=== PATIENT | female | born 1995 ===

== ENCOUNTER 2017-05-21 15:28 | Emergency (ER) | payer OTHER ==
[2017-05-21 15:47] VITALS: BP 130/90; PULSE 82; RESP 18; O2SAT 99
--- NOTE | 2017-05-21 16:15 | ED PDOC ---
HPI: General Adult Time Seen by Provider: 05/21/17 15:48 Chief Complaint (Nursing): Female Genitourinary History Per: Patient Additional Complaint(s): Pt. states last week she went to see Dr. Moreland as she had R sided breast pain and was found to be . Pt. states today she received a phone call from his office saying that her "level was low and to return to repeat the test. " This afternoon she developed R sided pelvic cramping prompting ED visit. Denies vaginal bleeding, hx of ectopic , dysuria, hematuria, frequency , urgency, vaginal discharge. Past Medical History Reviewed: Historical Data, Nursing Documentation, Vital Signs Vital Signs: Last Vital Signs Temp Pulse 82 05/21/17 15:43 Resp 18 05/21/17 15:43 BP 130/90 05/21/17 15:43 Pulse Ox 99 05/21/17 17:44 - Medical History PMH: Hypothyroidism - Surgical History Other surgeries: thyroidectomy - Family History Family History: States: No Known Family Hx - Home Medications Home Medications: Ambulatory Orders Medication Instructions Recorded Oseltamivir Phosphate [Tamiflu] 75 mg PO BID #10 capsule 10/03/15 Nitrofurantoin Macrocrystals 100 mg PO BID #14 cap 05/21/17 [Macrobid] - Allergies Allergies/Adverse Reactions: Allergies Allergy/AdvReac Type Severity Reaction Status Date / Time No Known Allergies Allergy Verified 05/21/17 15:43 Review of Systems ROS Statement: Except As Marked, All Systems Reviewed And Found Negative Genitourinary Female: Positive for: Pelvic Pain Physical Exam - Physical Exam Appears: Positive for: Well, Non-toxic, No Acute Distress Skin: Positive for: Normal Color, Warm. Negative for: Rash Eye Exam: Positive for: Normal appearance Gastrointestinal/Abdominal: Positive for: Normal Exam, Bowel Sounds, Soft, Other (minimal suprapubic tenderness). Negative for: Tenderness Back: Positive for: Normal Inspection. Negative for: L CVA Tenderness, R CVA Tenderness Neurologic/Psych: Positive for: Alert, Oriented - Laboratory Results Result Diagrams: 05/21/17 16:23 05/21/17 16:23 Urine POC: Positive Urine dip results: Positive for: Leukocyte Esterase (small). Negative for: Blood, Nitrate, Ketones, Glucose, Bilirubin, Protein - ECG O2 Sat by Pulse Oximetry: 99 - Progress ED Course And Treament: Labs ordered. OB TVUS ordered. 1741 TVUS: Endometrial hypertrophy without focal endometrial abnormality. Otherwise unremarkable study. [facility] 166 Urine culture sent. Call placed to Dr. Moreland 174 Case d/w Dr. Moreland who agrees with care and will f/u with patient. Disposition - Clinical Impression Clinical Impression: Urinary tract infection, - Patient ED Disposition Is Patient to be Admitted: No - Disposition Referrals: Salo Cruz MD [Staff Provider] - Disposition: Routine/Home Disposition Time: 17:43 Condition: STABLE Additional Instructions: Follow up with Dr. Moreland for further evaluation. Prescriptions: Nitrofurantoin Macrocrystals [Macrobid] 100 mg PO BID #14 cap Instructions: Urinary Tract Infection in (ED) Forms: [facility] (Slovenian) Print Language: LATVIAN
[2017-05-21 16:28] LABS: BASO % 0.2 % (0.0-2.0); EOS % 0.1 % (0.0-4.0); HEMATOCRIT 37.2 % (34.0-47.0); LYMPH # 1.9 K/uL (1.0-4.3); LYMPH % 24.4 % (20.0-40.0); MEAN CELL VOLUME 87.1 fl (81.0-99.0); MEAN CORPUSCULAR HEMOGLOBIN 29.5 pg (27.0-31.0); MEAN CORPUSCULAR HGB CONC 33.9 g/dL (33.0-37.0); MEAN PLATELET VOLUME 9.9 fl (7.2-11.7); MONO # 0.6 K/uL (0.0-0.8); NEUT # 5.2 K/uL (1.8-7.0); NEUT % 67.3 % (50.0-75.0); RED CELL DISTRIBUTION WIDTH 13.5 % (11.5-14.5); WHITE BLOOD COUNT 7.7 K/uL (4.8-10.8)
[2017-05-21 16:54] LABS: ALB/GLOB RATIO 1.4 (1.0-2.1); ALKALINE PHOSPHATASE 43 U/L (38-126); ALT/SGPT 23 U/L (9-52); AST/SGOT 22 U/L (14-36); BILIRUBIN,TOTAL 1.7 mg/dl (0.2-1.3); BLOOD UREA NITROGEN 12 mg/dl (7-17); CALCIUM 9.8 mg/dL (8.4-10.2); CARBON DIOXIDE 28 mmol/L (22-30); CHLORIDE 102 mmol/L (98-107); GFR AFRICAN-AMERICAN > 60; GLUCOSE,RANDOM 87 mg/dL (65-105); POTASSIUM 4.1 MMOL/L (3.6-5.0); SODIUM 141 mmol/l (132-148); TOTAL PROTEIN 7.8 G/DL (6.3-8.2)
[2017-05-21 16:58] LABS: RBC URINE 7 /hpf (0-3); URINE BACTERIA OCC (<OCC); URINE BILIRUBIN NEGATIVE (NEGATIVE); URINE BLOOD NEGATIVE (NEGATIVE); URINE COLOR YELLOW (YELLOW); URINE GLUCOSE (UA) NEG (Normal); URINE KETONE NEGATIVE (NEGATIVE); URINE LEUKOCYTE ESTERASE MOD Leu/uL (Negative); URINE PROTEIN NEGATIVE (NEGATIVE); URINE UROBILINOGEN 0.2-1.0 mg/dL (0.2-1.0)
[2017-05-21 16:59] LABS: WBC URINE 24 /hpf (0-5)
--- NOTE | 2017-05-21 17:34 | US ---
HISTORY: Pelvic cramping 4 hours duration. Menstrual status: LMP 04/15/2017 COMPARISON: None available. TECHNIQUE: Transvaginal only. Real -time technique with 2D, duplex and color Doppler FINDINGS: UTERUS: Measures 3.8 x 5.9 x 9 2 cm. Normal in size and appearance. No fibroid or other mass lesion seen. ENDOMETRIUM: Measures 23.9 mm in diameter. Endometrial hypertrophy without focal or diffuse abnormality. CERVIX: No cervical abnormality identified. RIGHT OVARY: Measures 1.9 x 2.1 x 3.3 cm. No solid mass. Normal flow. LEFT OVARY: Measures 2.3 x 2.4 x 3 cm. No solid mass. Normal flow. FREE FLUID: No significant free fluid noted. OTHER FINDINGS: None. IMPRESSION: Endometrial hypertrophy without focal endometrial abnormality. Otherwise unremarkable study.
== END 2017-05-21 18:06 | disposition home or self-care (01) ==
LOC: H.ER 15:28
DX: O23.40 Unspecified infection of urinary tract in pregnancy, unspecified trimester (principal)

== ENCOUNTER 2017-06-12 13:49 | Emergency (ER) | payer OTHER ==
[2017-06-12 14:05] VITALS: BP 113/68; PULSE 105; RESP 16; TEMP 97.2
[2017-06-12 14:09] VITALS: O2SAT 98
--- NOTE | 2017-06-12 15:04 | ED PDOC ---
HPI: Female Pain Time Seen by Provider: 06/12/17 14:11 Chief Complaint (Nursing): Female Genitourinary Chief Complaint (Provider): Vomiting History Per: Patient History/Exam Limitations: no limitations Onset/Duration Of Symptoms: Days (1 day ago) Current Symptoms Are (Timing): Still Present Associated Symptoms: Vomiting. denies: Diarrhea Additional Complaint(s): Di Jiménez is a 22 yo female with a past medical of Hypothyroidism and surgical history of a thyroidectomy. She is currently 8 weeks by ultrasound and presents to the ED with a chief complaint of vomiting multiple times and states that she is having trouble keeping food or liquids down, with an onset of 1 day ago. Of note, she was seen by a physician 4 days ago for the same symptoms and was sent home with a prescription of Reglan. She denies of any hematemesis, abdominal pain, diarrhea, dysuria, and vaginal bleeding. [employer]: Dr. Salo Cruz MD : 2 Para: 1 Past Medical History Reviewed: Historical Data, Nursing Documentation, Vital Signs Vital Signs: Last Vital Signs Temp 97.2 F L 06/12/17 14:05 Pulse 105 H 06/12/17 14:05 Resp 16 06/12/17 14:05 BP 113/68 06/12/17 14:06 Pulse Ox 98 06/12/17 14:06 - Medical History PMH: Hypothyroidism - Surgical History Other surgeries: Thyroidectomy - Family History Family History: States: Unknown Family Hx - Living Arrangements Living Arrangements: With Family - Social History Current smoker - smoking cessation education provided: No Alcohol: None Drugs: Denies - Home Medications Home Medications: Ambulatory Orders Medication Instructions Recorded Oseltamivir Phosphate [Tamiflu] 75 mg PO BID #10 capsule 10/03/15 Nitrofurantoin Macrocrystals 100 mg PO BID #14 cap 05/21/17 [Macrobid] Metoclopramide [Reglan] 10 mg PO Q8 #10 tab 06/08/17 Ondansetron ODT [Zofran ODT] 4 mg PO Q8 PRN #12 odt 06/12/17 - Allergies Allergies/Adverse Reactions: Allergies Allergy/AdvReac Type Severity Reaction Status Date / Time No Known Allergies Allergy Verified 06/12/17 14:05 Review of Systems ROS Statement: Except As Marked, All Systems Reviewed And Found Negative Constitutional: Negative for: Fever Gastrointestinal: Positive for: Vomiting. Negative for: Abdominal Pain, Diarrhea, Hematemesis Genitourinary Female: Negative for: Dysuria Physical Exam - Reviewed Nursing Documentation Reviewed: Yes Vital Signs Reviewed: Yes - Physical Exam Appears: Positive for: Non-toxic, No Acute Distress Head Exam: Positive for: ATRAUMATIC, NORMOCEPHALIC Skin: Positive for: Normal Color, Warm, Dry Eye Exam: Positive for: EOMI, Normal appearance, PERRL Neck: Positive for: Normal, Supple Cardiovascular/Chest: Positive for: Regular Rate, Rhythm Respiratory: Positive for: CNT, Normal Breath Sounds Gastrointestinal/Abdominal: Positive for: Normal Exam, Soft. Negative for: Tenderness Back: Positive for: Normal Inspection Extremity: Positive for: Normal ROM. Negative for: Pedal Edema, Deformity Neurologic/Psych: Positive for: Alert, Oriented. Negative for: Motor/Sensory Deficits - Laboratory Results Result Diagrams: 06/12/17 15:10 06/12/17 15:10 - ECG O2 Sat by Pulse Oximetry: 98 (RA) Pulse Ox Interpretation: Normal Medical Decision Making Medical Decision Making: Time: --14:50 Impression: --vomitting in preg Differentials: --possible dehydraton Plan: --Labs --ED Urine --Odansetron 4mg IV --IV Fluids --Urinaysis -- Reassess: --Time: 16:25 Patient is feeling better and able tolerate PO. Discussed with Anthony who recommends Zofran ODT rx and discharge with follow up. Scribe Attestation: Documented by Hussain Giordano, acting as a scribe for Joe Veras MD. Provider Scribe Attestation: All medical record entries made by the Scribe were at my direction and personally dictated by me. I have reviewed the chart and agree that the record accurately reflects my personal performance of the history, physical exam, medical decision making, and the department course for this patient. I have also personally directed, reviewed, and agree with the discharge instructions and disposition. Disposition - Clinical Impression Clinical Impression: Hyperemesis gravidarum - Patient ED Disposition Is Patient to be Admitted: No Discussed With : Salo Cruz Doctor Will See Patient In The: Office Counseled Patient/Family Regarding: Studies Performed, Diagnosis - Disposition Referrals: Salo Cruz MD [Staff Provider] - Disposition: Routine/Home Disposition Time: 16:35 Condition: GOOD Additional Instructions: Return for worsening. Follow up with your PCP in 2-3 days. Prescriptions: Ondansetron ODT [Zofran ODT] 4 mg PO Q8 PRN #12 odt PRN Reason: Nausea/Vomiting Instructions: Hyperemesis Gravidarum (ED)
[2017-06-12 15:20] LABS: BASO % 0.2 % (0.0-2.0); HEMATOCRIT 35.5 % (34.0-47.0); LYMPH # 1.6 K/uL (1.0-4.3); LYMPH % 18.8 % (20.0-40.0); MEAN CELL VOLUME 85.1 fl (81.0-99.0); MEAN CORPUSCULAR HEMOGLOBIN 30.1 pg (27.0-31.0); MEAN CORPUSCULAR HGB CONC 35.3 g/dL (33.0-37.0); MEAN PLATELET VOLUME 9.5 fl (7.2-11.7); MONO # 0.5 K/uL (0.0-0.8); MONO % 6.2 % (0.0-10.0); NEUT # 6.2 K/uL (1.8-7.0); NEUT % 74.8 % (50.0-75.0); WHITE BLOOD COUNT 8.3 K/uL (4.8-10.8)
[2017-06-12 15:30] LABS: RBC URINE 2 /hpf (0-3); URINE BACTERIA RARE (<OCC); URINE BILIRUBIN NEGATIVE (NEGATIVE); URINE BLOOD NEGATIVE (NEGATIVE); URINE COLOR YELLOW (YELLOW); URINE GLUCOSE (UA) NEG (Normal); URINE KETONE 80 mg/dL (NEGATIVE); URINE LEUKOCYTE ESTERASE NEG Leu/uL (Negative); URINE PROTEIN 100 mg/dL (NEGATIVE); URINE UROBILINOGEN 0.2-1.0 mg/dL (0.2-1.0); WBC URINE 1 /hpf (0-5)
[2017-06-12 15:31] LABS: ALB/GLOB RATIO 1.4 (1.0-2.1); ALKALINE PHOSPHATASE 37 U/L (38-126); ALT/SGPT 28 U/L (9-52); AST/SGOT 22 U/L (14-36); BILIRUBIN,TOTAL 1.9 mg/dl (0.2-1.3); BLOOD UREA NITROGEN 7 mg/dl (7-17); CALCIUM 9.3 mg/dL (8.4-10.2); CARBON DIOXIDE 24 mmol/L (22-30); CHLORIDE 104 mmol/L (98-107); GFR AFRICAN-AMERICAN > 60; GLUCOSE,RANDOM 82 mg/dL (65-105); POTASSIUM 4.2 MMOL/L (3.6-5.0); SODIUM 141 mmol/l (132-148)
[2017-06-12] MEDS ORDERED: Sodium Chloride 0.9% 1,000 ML IV STA (16:32)
== END 2017-06-12 16:50 | disposition home or self-care (01) ==
LOC: H.ER 13:49
DX: O21.0 Mild hyperemesis gravidarum (principal); E03.9 Hypothyroidism, unspecified
CPT/HCPCS: 80053; 81003; 81025; 85025; 96374; 99282; J2405

== ENCOUNTER 2017-06-25 13:03 | Emergency (ER) | payer OTHER ==
[2017-06-25 13:18] VITALS: BP 92/59; PULSE 76; RESP 18; TEMP 98.2; O2SAT 95
[2017-06-25] MEDS ORDERED: Sodium Chloride 0.9% 1,000 ML IV STA (13:22)
--- NOTE | 2017-06-25 13:33 | ED PDOC ---
HPI:Nausea, Vomiting, Diarrhea Time Seen by Provider: 06/25/17 13:11 Chief Complaint (Nursing): GI Problem Chief Complaint (Provider): Vomiting History Per: Patient History/Exam Limitations: no limitations Onset/Duration Of Symptoms: Days (x2), Worse Since (x2 days) Current Symptoms Are (Timing): Still Present Associated Symptoms: Nausea, Vomiting (x6 episodes). denies: Fever, Chills, Other (Vaginal bleeding) Additional Complaint(s): Di Jiménez is a 22 year old female, with a past medical history of hypothyroidism, who presents to the emergency department complaining of multiple episodes of vomiting associated with nausea onset for 2 days. Patient is approximately 10 weeks , and this is her second . Patient reports x6 episodes of vomiting and states it has been worsening for the past couple of days. She denies any fever, chills or vaginal bleeding. No further medical complaints. PMD: Salo Cruz Past Medical History Reviewed: Historical Data, Nursing Documentation, Vital Signs Vital Signs: Last Vital Signs Temp 98.2 F 06/25/17 13:14 Pulse 76 06/25/17 13:14 Resp 18 06/25/17 13:14 BP 92/59 L 06/25/17 13:14 Pulse Ox 95 06/25/17 13:14 - Medical History PMH: Hypothyroidism - Family History Family History: States: Unknown Family Hx - Social History Current smoker - smoking cessation education provided: No Alcohol: None Drugs: Denies - Home Medications Home Medications: Ambulatory Orders Medication Instructions Recorded Oseltamivir Phosphate [Tamiflu] 75 mg PO BID #10 capsule 10/03/15 Nitrofurantoin Macrocrystals 100 mg PO BID #14 cap 05/21/17 [Macrobid] Metoclopramide [Reglan] 10 mg PO Q8 #10 tab 06/08/17 Ondansetron ODT [Zofran ODT] 4 mg PO Q8 PRN #12 odt 06/12/17 Doxylamine/Pyridoxine HCl (B6) 2 each PO HS #20 tablet. 06/25/17 [Jareth Yang 10-10 mg Tablet] - Allergies Allergies/Adverse Reactions: Allergies Allergy/AdvReac Type Severity Reaction Status Date / Time No Known Allergies Allergy Verified 06/12/17 14:05 Review of Systems ROS Statement: Except As Marked, All Systems Reviewed And Found Negative Constitutional: Negative for: Fever, Chills Gastrointestinal: Positive for: Nausea, Vomiting (x6 episodes) Genitourinary Female: Negative for: Vaginal Bleeding Physical Exam - Reviewed Nursing Documentation Reviewed: Yes Vital Signs Reviewed: Yes - Physical Exam Appears: Positive for: Well, Non-toxic, No Acute Distress Head Exam: Positive for: ATRAUMATIC, NORMAL INSPECTION, NORMOCEPHALIC Skin: Positive for: Normal Color, Warm, Dry Eye Exam: Positive for: EOMI, Normal appearance, PERRL Neck: Positive for: Normal, Painless ROM, Supple Cardiovascular/Chest: Positive for: Regular Rate, Rhythm. Negative for: Murmur Respiratory: Positive for: Normal Breath Sounds. Negative for: Respiratory Distress Gastrointestinal/Abdominal: Positive for: Normal Exam, Bowel Sounds, Soft Extremity: Positive for: Normal ROM Neurologic/Psych: Positive for: Alert, Oriented - Laboratory Results Result Diagrams: 06/25/17 14:02 06/25/17 14:02 - ECG O2 Sat by Pulse Oximetry: 95 (RA) Pulse Ox Interpretation: Normal Medical Decision Making Medical Decision Making: Initial Impression: Vomiting Initial Plan: --Beta-HCG, Quantitative --Comp Metabolic Panel --Urine Dipstick --Urine --CBC w/ differential --NS IV 1,000 ml @ 1,000 mls/hr --Zofran Inj 4mg IV --OB Transvaginal [US] --reevaluation labs resulted and reviewed with Pt who demonstrated full understanding US reveals SLIUP Pt doing well on re-eval, tolerating PO Stable for discharge at this time. Advised to follow up with Dr. Cruz as scheduled. return to ED if at anytime condition worsens ~ Scribe Attestation: Documented by Brian Morrison, acting as a scribe for Briana Zarate PA-C. Provider Scribe Attestation: All medical record entries made by the Scribe were at my direction and personally dictated by me. I have reviewed the chart and agree that the record accurately reflects my personal performance of the history, physical exam, medical decision making, and the department course for this patient. I have also personally directed, reviewed, and agree with the discharge instructions and disposition. Disposition - Clinical Impression Clinical Impression: Hyperemesis gravidarum - Patient ED Disposition Is Patient to be Admitted: No - Disposition Disposition: Routine/Home Disposition Time: 15:05 Condition: STABLE Prescriptions: Doxylamine/Pyridoxine HCl (B6) [Jareth Yang 10-10 mg Tablet] 2 each PO HS #20 tablet. Instructions: Hyperemesis Gravidarum (ED) Forms: [facility] (Malay) - POA Present On Arrival: None
[2017-06-25 14:10] LABS: BASO % 0.2 % (0.0-2.0); EOS % 0.1 % (0.0-4.0); HEMATOCRIT 38.5 % (34.0-47.0); LYMPH # 1.7 K/uL (1.0-4.3); LYMPH % 20.4 % (20.0-40.0); MEAN CELL VOLUME 86.3 fl (81.0-99.0); MEAN CORPUSCULAR HEMOGLOBIN 29.2 pg (27.0-31.0); MEAN CORPUSCULAR HGB CONC 33.8 g/dL (33.0-37.0); MEAN PLATELET VOLUME 10.3 fl (7.2-11.7); MONO # 0.5 K/uL (0.0-0.8); NEUT # 6.3 K/uL (1.8-7.0); NEUT % 73.3 % (50.0-75.0); NRBC % 0.1 % (0.0-0.0); RED CELL DISTRIBUTION WIDTH 12.9 % (11.5-14.5); WHITE BLOOD COUNT 8.6 K/uL (4.8-10.8)
[2017-06-25 14:21] LABS: ALB/GLOB RATIO 1.3 (1.0-2.1); ALKALINE PHOSPHATASE 36 U/L (38-126); ALT/SGPT 32 U/L (9-52); AST/SGOT 21 U/L (14-36); BILIRUBIN,TOTAL 1.3 mg/dl (0.2-1.3); BLOOD UREA NITROGEN 5 mg/dl (7-17); CALCIUM 9.7 mg/dL (8.4-10.2); CARBON DIOXIDE 24 mmol/L (22-30); CHLORIDE 105 mmol/L (98-107); GFR AFRICAN-AMERICAN > 60; GLUCOSE,RANDOM 89 mg/dL (65-105); POTASSIUM 4.2 MMOL/L (3.6-5.0); SODIUM 139 mmol/l (132-148); TOTAL PROTEIN 8.6 G/DL (6.3-8.2)
--- NOTE | 2017-06-25 15:23 | US ---
PROCEDURE: OB Pelvic Ultrasound HISTORY: abdominal pain COMPARISON: Comparison is made to the previous study dated 06/08/2017 TECHNIQUE: Transvaginal ultrasound examination of the pelvis was performed. FINDINGS: UTERUS: Gestational sac: Single intrauterine gestation. Heart rate: 176 bpm. age (Ultrasound estimated): 9 weeks 3 days 0 weeks 5 days Pati-gestational hemorrhage: None. Date of delivery (Ultrasound estimated) : 01/25/2018 Uterus Measures 9.4 x 5.8 x 8.9 cm. No fibroid or other mass lesion seen. CERVIX: Long and closed. No cervical abnormality seen. RIGHT OVARY: Measures 3.2 x 1.7 x 3.3 cm. No mass lesion. Normal flow. LEFT OVARY: Measures 2.7 x 2.0 x 2.5 cm. No solid mass. Normal flow. FREE FLUID: Small amount of free fluid in the pelvis OTHER FINDINGS: None. IMPRESSION: Single intrauterine live with ultrasound estimated gestational age of 9 weeks 3 days 0 weeks 5 days. Estimated date of delivery by ultrasound is 01/25/2018.
== END 2017-06-25 17:39 | disposition home or self-care (01) ==
LOC: H.ER 13:03
DX: O21.0 Mild hyperemesis gravidarum (principal); Z3A.09 9 weeks gestation of pregnancy
CPT/HCPCS: 76817; 80053; 81025; 84702; 85025; 99283; J2405; J7040

== ENCOUNTER 2017-06-28 18:11 | Emergency (ER) | payer OTHER ==
[2017-06-28 18:27] VITALS: BP 99/71; PULSE 82; RESP 16; TEMP 97.9; O2SAT 100
[2017-06-28] MEDS ORDERED: Lactated Ringer's 1,000 ML IV STA (19:00)
[2017-06-28] MEDS ORDERED: Dextrose 5%/Lactated Ringer's 1,000 ML IV SCH (19:00)
--- NOTE | 2017-06-28 19:40 | ED PDOC ---
HPI: Abdomen Time Seen by Provider: 06/28/17 18:54 Chief Complaint (Nursing): GI Problem Chief Complaint (Provider): Vomiting History Per: Patient History/Exam Limitations: no limitations Onset/Duration Of Symptoms: Days Additional Complaint(s): Di is a 22 year old female who presents to the Emergency Department complaining of vomiting for the past 4 weeks. States vomiting occurs due to her . Reports she was here 3 days ago for the same complaints. States she feels better with medications, but symptoms came back the following day. Denies bilious or bloody emesis, diarrhea, vaginal discharge, vaginal bleeding, and urinary symptoms. PMD: Dr. Cruz Past Medical History Reviewed: Historical Data, Nursing Documentation, Vital Signs Vital Signs: Last Vital Signs Temp 97.9 F 06/28/17 18:24 Pulse 82 06/28/17 18:24 Resp 16 06/28/17 18:24 BP 99/71 L 06/28/17 18:24 Pulse Ox 100 06/28/17 19:52 - Medical History PMH: Hypothyroidism - Family History Family History: States: Unknown Family Hx - Home Medications Home Medications: Ambulatory Orders Medication Instructions Recorded Oseltamivir Phosphate [Tamiflu] 75 mg PO BID #10 capsule 10/03/15 Nitrofurantoin Macrocrystals 100 mg PO BID #14 cap 05/21/17 [Macrobid] Metoclopramide [Reglan] 10 mg PO Q8 #10 tab 06/08/17 Ondansetron ODT [Zofran ODT] 4 mg PO Q8 PRN #12 odt 06/12/17 Doxylamine/Pyridoxine HCl (B6) 2 each PO HS #20 tablet. 06/25/17 [Jaerth Yang 10-10 mg Tablet] Famotidine [Pepcid] 40 mg PO DAILY PRN #30 tab 06/28/17 Ondansetron ODT [Zofran ODT] 1 odt PO Q6 PRN #20 odt 06/28/17 - Allergies Allergies/Adverse Reactions: Allergies Allergy/AdvReac Type Severity Reaction Status Date / Time No Known Allergies Allergy Verified 06/28/17 18:23 Review of Systems ROS Statement: Except As Marked, All Systems Reviewed And Found Negative Gastrointestinal: Negative for: Vomiting (bilious or bloody), Diarrhea Genitourinary Female: Positive for: Vaginal Bleeding. Negative for: Dysuria, Hematuria, Vaginal Discharge - Laboratory Results Result Diagrams: 06/28/17 19:54 06/28/17 19:54 - ECG O2 Sat by Pulse Oximetry: 100 (RA) Pulse Ox Interpretation: Normal Medical Decision Making Medical Decision Making: Time: 18:59 Impression: Hyperemesis Gravidarum Plan: - CMP - Drug Screen, Urine - Lact Acid, Plasma - Magnesium - Phosphorous - CBC - Dextrose 5%/Lactated Ringers 1,000 ml IV 100 mls/hr - Lactated Ringers 1,000 ml IV 1,000 mls/hr - Pepcid 20 mg IVP - Zofran Inj Scribe Attestation: Documented by Rome Samayoa, acting as a scribe for Briana Sidhu MD Provider Scribe Attestation: All medical record entries made by the Scribe were at my direction and personally dictated by me. I have reviewed the chart and agree that the record accurately reflects my personal performance of the history, physical exam, medical decision making, and the department course for this patient. I have also personally directed, reviewed, and agree with the discharge instructions and disposition. Disposition - Clinical Impression Clinical Impression: Hyperemesis gravidarum Counseled Patient/Family Regarding: Studies Performed, Diagnosis, Need For Followup, Rx Given - Disposition Referrals: Salo Cruz MD [Staff Provider] - 06/29/17 Disposition: Routine/Home Disposition Time: 22:40 Condition: IMPROVED Prescriptions: Famotidine [Pepcid] 40 mg PO DAILY PRN #30 tab PRN Reason: reflux Ondansetron ODT [Zofran ODT] 1 odt PO Q6 PRN #20 odt PRN Reason: Nausea/Vomiting Instructions: Hyperemesis Gravidarum (ED) Forms: [facility] ED School/Work Excuse
[2017-06-28 20:04] LABS: BASO % 0.1 % (0.0-2.0); HEMATOCRIT 35.8 % (34.0-47.0); LYMPH # 1.5 K/uL (1.0-4.3); LYMPH % 17.8 % (20.0-40.0); MEAN CELL VOLUME 86.2 fl (81.0-99.0); MEAN CORPUSCULAR HEMOGLOBIN 29.1 pg (27.0-31.0); MEAN CORPUSCULAR HGB CONC 33.7 g/dL (33.0-37.0); MEAN PLATELET VOLUME 10.2 fl (7.2-11.7); MONO # 0.5 K/uL (0.0-0.8); MONO % 6.2 % (0.0-10.0); NEUT # 6.5 K/uL (1.8-7.0); NEUT % 75.9 % (50.0-75.0); NRBC % 0.1 % (0.0-0.0); RED CELL DISTRIBUTION WIDTH 12.7 % (11.5-14.5); WHITE BLOOD COUNT 8.6 K/uL (4.8-10.8)
[2017-06-28 20:32] LABS: ALB/GLOB RATIO 1.3 (1.0-2.1); ALKALINE PHOSPHATASE 35 U/L (38-126); ALT/SGPT 25 U/L (9-52); AST/SGOT 19 U/L (14-36); BILIRUBIN,TOTAL 1.4 mg/dl (0.2-1.3); BLOOD UREA NITROGEN 7 mg/dl (7-17); CALCIUM 9.4 mg/dL (8.4-10.2); CARBON DIOXIDE 24 mmol/L (22-30); CHLORIDE 104 mmol/L (98-107); GFR AFRICAN-AMERICAN > 60; GLUCOSE,RANDOM 74 mg/dL (65-105); MAGNESIUM 1.9 MG/DL (1.6-2.3); PHOSPHOROUS 3.8 mg/dl (2.5-4.5); SODIUM 138 mmol/l (132-148); TOTAL PROTEIN 7.8 G/DL (6.3-8.2)
== END 2017-06-28 22:50 | disposition home or self-care (01) ==
LOC: H.ER 18:11
DX: O21.1 Hyperemesis gravidarum with metabolic disturbance (principal); E03.9 Hypothyroidism, unspecified
CPT/HCPCS: 80053; 80324; 80345; 80346; 80349; 80353; 80358; 80361; 81025; 83605; 83735; 83992; 84100; 85025; 96361; 96374; 96375; 99282; J2405; J7120

== ENCOUNTER 2017-06-30 12:56 | Inpatient (IN) | payer OTHER ==
[2017-06-30] MEDS ORDERED: Sodium Chloride 0.9% 1,000 ML IV STA (14:43)
[2017-06-30 15:02] LABS: BASO % 0.1 % (0.0-2.0); EOS % 0.2 % (0.0-4.0); HEMATOCRIT 34.1 % (34.0-47.0); LYMPH # 1.5 K/uL (1.0-4.3); LYMPH % 23.2 % (20.0-40.0); MEAN CELL VOLUME 86.6 fl (81.0-99.0); MEAN CORPUSCULAR HGB CONC 33.5 g/dL (33.0-37.0); MONO # 0.4 K/uL (0.0-0.8); MONO % 6.8 % (0.0-10.0); NEUT # 4.5 K/uL (1.8-7.0); NEUT % 69.7 % (50.0-75.0); NRBC % 0.1 % (0.0-0.0); RED CELL DISTRIBUTION WIDTH 12.9 % (11.5-14.5); WHITE BLOOD COUNT 6.4 K/uL (4.8-10.8)
[2017-06-30 15:24] LABS: BLOOD UREA NITROGEN 5 mg/dl (7-17); CALCIUM 8.7 mg/dL (8.4-10.2); CARBON DIOXIDE 24 mmol/L (22-30); CHLORIDE 104 mmol/L (98-107); GFR AFRICAN-AMERICAN > 60; GLUCOSE,RANDOM 76 mg/dL (65-105); POTASSIUM 3.5 MMOL/L (3.6-5.0); SODIUM 137 mmol/l (132-148)
[2017-06-30] MEDS ORDERED: Lactated Ringer's 1,000 ML IV SCH (15:45)
[2017-06-30] MEDS: Lactated Ringer's 1,000 ML IV SCH (16:15)
--- NOTE | 2017-06-30 16:35 | ED PDOC ---
HPI: General Adult Time Seen by Provider: 06/30/17 13:33 Chief Complaint (Nursing): GI Problem Chief Complaint (Provider): Vomiting History Per: Patient History/Exam Limitations: no limitations Onset/Duration Of Symptoms: Other (weeks) Additional Complaint(s): Patient is a 22 y/o female with no significant past medical history presenting to the emergency department for vomiting and nausea every day for several weeks. Of note, patient is ten weeks . States that she cannot keep anything down when consuming food. Notes using Zofran at home as prescribed by her doctor without any significant relief. Denies bloody or bilious vomiting, vaginal bleeding, abdominal pain, diarrhea, or other complaints. PCP: Dr. Salo Cruz Past Medical History Reviewed: Historical Data, Nursing Documentation, Vital Signs Vital Signs: Last Vital Signs Temp 98.6 F 06/30/17 15:01 Pulse 89 06/30/17 15:01 Resp 20 06/30/17 15:01 BP 107/73 06/30/17 15:01 Pulse Ox 100 06/30/17 16:43 - Medical History PMH: Hypothyroidism - Family History Family History: States: Unknown Family Hx - Home Medications Home Medications: Ambulatory Orders Medication Instructions Recorded Oseltamivir Phosphate [Tamiflu] 75 mg PO BID #10 capsule 10/03/15 Nitrofurantoin Macrocrystals 100 mg PO BID #14 cap 05/21/17 [Macrobid] Metoclopramide [Reglan] 10 mg PO Q8 #10 tab 06/08/17 Ondansetron ODT [Zofran ODT] 4 mg PO Q8 PRN #12 odt 06/12/17 Doxylamine/Pyridoxine HCl (B6) 2 each PO HS #20 tablet. 06/25/17 [Jareth Yang 10-10 mg Tablet] Famotidine [Pepcid] 40 mg PO DAILY PRN #30 tab 06/28/17 Ondansetron ODT [Zofran ODT] 1 odt PO Q6 PRN #20 odt 06/28/17 - Allergies Allergies/Adverse Reactions: Allergies Allergy/AdvReac Type Severity Reaction Status Date / Time No Known Allergies Allergy Verified 06/28/17 18:23 Review of Systems ROS Statement: Except As Marked, All Systems Reviewed And Found Negative Constitutional: Positive for: Other (decreased PO tolerance) Gastrointestinal: Positive for: Nausea, Vomiting. Negative for: Abdominal Pain , Diarrhea Physical Exam - Reviewed Nursing Documentation Reviewed: Yes Vital Signs Reviewed: Yes - Physical Exam Appears: Positive for: Well, Non-toxic, No Acute Distress Head Exam: Positive for: ATRAUMATIC, NORMAL INSPECTION, NORMOCEPHALIC Skin: Positive for: Normal Color, Warm, Dry Eye Exam: Positive for: Normal appearance ENT: Positive for: Normal ENT Inspection Neck: Positive for: Normal Cardiovascular/Chest: Positive for: Regular Rate, Rhythm. Negative for: Murmur Respiratory: Positive for: Normal Breath Sounds. Negative for: Accessory Muscle Use, Respiratory Distress Gastrointestinal/Abdominal: Positive for: Normal Exam, Soft. Negative for: Tenderness Extremity: Positive for: Normal ROM. Negative for: Pedal Edema Neurologic/Psych: Positive for: Alert, Oriented (x3) - Laboratory Results Result Diagrams: 06/30/17 14:58 06/30/17 14:58 - ECG O2 Sat by Pulse Oximetry: 100 (RA) Pulse Ox Interpretation: Normal Medical Decision Making Medical Decision Making: Time: 14:42 Initial impression: Hyperemesis, gravidarum Initial plan: Labs: CMP, LFT, T3 and T4, TSH, CBC Pepcid 20 mg IVP Lactated Ringers 1 L IV Reglan 10 mg Normal Saline 1 L IV Zofran 4 mg IV Urinalysis Reevaluation Discussed case with Dr. Cruz who agrees to admit patient for dehydration and hyperemesis. Scribe Attestation: Documented by Kellie Salazar, acting as a scribe for Paresh Mix MD. Provider Scribe Attestation: All medical record entries made by the Scribe were at my direction and personally dictated by me. I have reviewed the chart and agree that the record accurately reflects my personal performance of the history, physical exam, medical decision making, and the department course for this patient. I have also personally directed, reviewed, and agree with the discharge instructions and disposition. Disposition - Disposition Condition: STABLE
[2017-06-30 17:22] LABS: MEAN CELL VOLUME 85.2 fl (81.0-99.0); MEAN CORPUSCULAR HEMOGLOBIN 29.9 pg (27.0-31.0); MEAN CORPUSCULAR HGB CONC 35.1 g/dL (33.0-37.0); RED CELL DISTRIBUTION WIDTH 12.7 % (11.5-14.5); WHITE BLOOD COUNT 6.9 K/uL (4.8-10.8)
[2017-06-30 17:30] LABS: ALB/GLOB RATIO 1.3 (1.0-2.1); ALKALINE PHOSPHATASE 30 U/L (38-126); ALT/SGPT 23 U/L (9-52); AST/SGOT 16 U/L (14-36); BILIRUBIN,TOTAL 0.9 mg/dl (0.2-1.3); BLOOD UREA NITROGEN 4 mg/dl (7-17); CALCIUM 8.3 mg/dL (8.4-10.2); CARBON DIOXIDE 24 mmol/L (22-30); CHLORIDE 107 mmol/L (98-107); GFR AFRICAN-AMERICAN > 60; GLUCOSE,RANDOM 79 mg/dL (65-105); POTASSIUM 3.7 MMOL/L (3.6-5.0); SODIUM 137 mmol/l (132-148); TOTAL PROTEIN 6.5 G/DL (6.3-8.2)
[2017-06-30 17:45] LABS: T4 12.2 ug/dl (5.5-11.0)
[2017-06-30 17:59] LABS: THYROID STIMULATING HORMONE 1.59 mIU/ML (0.46-4.68)
[2017-07-01] MEDS: Lactated Ringer's 1,000 ML IV SCH ×3 (00:34→16:42)
[2017-07-01 01:20] LABS: RBC URINE < 1 /hpf (0-3); URINE BACTERIA RARE (<OCC); URINE BILIRUBIN NEGATIVE (NEGATIVE); URINE BLOOD NEGATIVE (NEGATIVE); URINE COLOR YELLOW (YELLOW); URINE GLUCOSE (UA) NEG (Normal); URINE KETONE 20 mg/dL (NEGATIVE); URINE LEUKOCYTE ESTERASE NEG Leu/uL (Negative); URINE PROTEIN NEGATIVE (NEGATIVE); WBC URINE < 1 /hpf (0-5)
[2017-07-01 12:53] VITALS: O2SAT 100
--- NOTE | 2017-07-01 18:04 | CP.PCM.HP ---
History of Present Illness - History of Present Illness History of Present Illness: severe hyperemesis at 11 weeks Present on Admission - Present on Admission Any Indicators Present on Admission: No Review of Systems - Constitutional Constitutional: As Per HPI - EENT Eyes: As Per HPI Ears: As Per HPI Nose/Mouth/Throat: As Per HPI - Breasts Breasts: As Per HPI - Cardiovascular Cardiovascular: As Per HPI - Respiratory Respiratory: As Per HPI - Gastrointestinal Gastrointestinal: As Per HPI, Vomiting Past Patient History - Past Medical History & Family History Past Medical History?: Yes - Past Social History Smoking Status: Never Smoked - CARDIAC Hx Cardiac Disorders: No - PULMONARY Hx Respiratory Disorders: No - NEUROLOGICAL Hx Neurological Disorder: No - HEENT Hx HEENT Problems: No - RENAL Hx Chronic Kidney Disease: No - ENDOCRINE/METABOLIC Hx Hypothyroidism: Yes - HEMATOLOGICAL/ONCOLOGICAL Hx Blood Disorders: No Hx AIDS: No Hx Human Immunodeficiency Virus (HIV): No - INTEGUMENTARY Hx Dermatological Problems: No - MUSCULOSKELETAL/RHEUMATOLOGICAL Hx Musculoskeletal Disorders: No Hx Falls: No - GASTROINTESTINAL Hx Gastrointestinal Disorders: No Hx Vomiting: Yes (for past 3 weeks) - GENITOURINARY/GYNECOLOGICAL Hx Genitourinary Disorders: No - PSYCHIATRIC Hx Psychophysiologic Disorder: No Hx Substance Use: No - SURGICAL HISTORY Hx Surgeries: No Hx Thyroidectomy: Yes (2010 half) - ANESTHESIA Hx Anesthesia: Yes Hx Anesthesia Reactions: No Meds Allergies/Adverse Reactions: Allergies Allergy/AdvReac Type Severity Reaction Status Date / Time No Known Allergies Allergy Verified 06/28/17 18:23 Results - Vital Signs Recent Vital Signs: Last Vital Signs Temp 99 F 07/01/17 16:53 Pulse 61 07/01/17 16:53 Resp 20 07/01/17 16:53 BP 102/59 L 07/01/17 16:53 Pulse Ox 100 07/01/17 16:53 - Labs Result Diagrams: 06/30/17 17:05 06/30/17 17:05 Labs: Laboratory Results - last 24 hr 07/01/17 01:05 Urine Color Yellow Urine Clarity Slighty-cloudy Urine pH 7.0 Ur Specific [place] 1.013 Urine Protein Negative Urine Glucose (UA) Neg Urine Ketones 20 Urine Blood Negative Urine Nitrate Negative Urine Bilirubin Negative Urine Urobilinogen 2.0 H Ur Leukocyte Esterase Neg Urine RBC (Auto) < 1 Urine Microscopic WBC < 1 Ur Squamous Epith Cells 2 Urine Bacteria Rare Assessment & Plan - Assessment and Plan (Free Text) Assessment: hyperemesis severe Decision To Admit - . Bed Request Type: OB\PROGRESSIVE CARE MANAGER
--- NOTE | 2017-07-01 18:19 | CP.PCM.PN ---
Subjective - Date & Time of Evaluation Date of Evaluation: 07/01/17 Time of Evaluation: 08:00 - Subjective Subjective: feels better today Objective - Vital Signs/Intake and Output Vital Signs (last 24 hours): Temp Pulse Resp BP Pulse Ox 99 F 61 20 102/59 L 100 07/01/17 16:53 07/01/17 16:53 07/01/17 16:53 07/01/17 16:53 07/01/17 16:53 Intake and Output: 07/01/17 07/01/17 06:59 18:59 Intake Total 4350 Balance 4350 - Medications Medications: Current Medications Famotidine (Pepcid) 20 mg IVP Q12 PRN PRN Reason: for epigastric pain Lactated Ringer's (Lactated Ringer's) 1,000 mls @ 125 mls/hr IV .Q8H [facility] Last Admin: 07/01/17 16:42 Dose: 125 mls/hr Metoclopramide HCl (Reglan) 10 mg IVP Q6 PRN PRN Reason: Nausea/Vomiting Last Admin: 06/30/17 16:15 Dose: 10 mg Ondansetron HCl (Zofran Inj) 4 mg IVP Q8 MELISSA Last Admin: 07/01/17 16:42 Dose: 4 mg - Labs Labs: 06/30/17 17:05 06/30/17 17:05 - Eye Exam Additional comments: feels better today - Additional Findings Additional findings: vs stable afebrile Assessment and Plan - Assessment and Plan (Free Text) Assessment: stable hospital day1 Plan: advance diet as tolerated contonue present meds
[2017-07-02] MEDS: Lactated Ringer's 1,000 ML IV SCH ×2 (00:47→08:59)
[2017-07-02 10:04] VITALS: BP 125/59; PULSE 75; RESP 18; TEMP 98.1
--- NOTE | 2017-07-02 15:03 | CP.PCM.DIS ---
Provider - Provider Date of Admission: 06/30/17 14:42 Attending physician: Salo Cruz MD Time Spent in preparation of Discharge (in minutes): 30 Diagnosis - Discharge Diagnosis (1) Hyperemesis gravidarum Status: Acute Hospital Course - Lab Results Lab Results: Most Recent Lab Values WBC 6.9 K/uL (4.8-10.8) 06/30/17 17:05 RBC 3.52 Mil/uL (3.80-5.20) L 06/30/17 17:05 Hgb 10.5 g/dL (12.0-16.0) L 06/30/17 17:05 Hct 30.0 % (34.0-47.0) L 06/30/17 17:05 MCV 85.2 fl (81.0-99.0) 06/30/17 17:05 MCH 29.9 pg (27.0-31.0) 06/30/17 17:05 MCHC 35.1 g/dL (33.0-37.0) 06/30/17 17:05 RDW 12.7 % (11.5-14.5) 06/30/17 17:05 Plt Count 181 K/uL (130-400) 06/30/17 17:05 MPV 10.0 fl (7.2-11.7) 06/30/17 14:58 Neut % (Auto) 69.7 % (50.0-75.0) 06/30/17 14:58 Lymph % (Auto) 23.2 % (20.0-40.0) 06/30/17 14:58 Levy % (Auto) 6.8 % (0.0-10.0) 06/30/17 14:58 Eos % (Auto) 0.2 % (0.0-4.0) 06/30/17 14:58 Baso % (Auto) 0.1 % (0.0-2.0) 06/30/17 14:58 Neut # 4.5 K/uL (1.8-7.0) 06/30/17 14:58 Lymph # 1.5 K/uL (1.0-4.3) 06/30/17 14:58 Levy # 0.4 K/uL (0.0-0.8) 06/30/17 14:58 Eos # 0.0 K/uL (0.0-0.7) 06/30/17 14:58 Baso # 0.0 K/uL (0.0-0.2) 06/30/17 14:58 Sodium 137 mmol/l (132-148) 06/30/17 17:05 Potassium 3.7 MMOL/L (3.6-5.0) 06/30/17 17:05 Chloride 107 mmol/L (98-107) 06/30/17 17:05 Carbon Dioxide 24 mmol/L (22-30) 06/30/17 17:05 Anion Gap 10 (10-20) 06/30/17 17:05 BUN 4 mg/dl (7-17) L 06/30/17 17:05 Creatinine 0.5 mg/dl (0.7-1.2) L 06/30/17 17:05 Est GFR ( Amer) > 60 06/30/17 17:05 Est GFR (Non-Af Amer) > 60 06/30/17 17:05 Random Glucose 79 mg/dL (65-105) 06/30/17 17:05 Calcium 8.3 mg/dL (8.4-10.2) L 06/30/17 17:05 Total Bilirubin 0.9 mg/dl (0.2-1.3) 06/30/17 17:05 Direct Bilirubin 0.3 mg/ml (0.0-0.4) 06/30/17 17:05 AST 16 U/L (14-36) 06/30/17 17:05 ALT 23 U/L (9-52) 06/30/17 17:05 Alkaline Phosphatase 30 U/L (38-126) L 06/30/17 17:05 Total Protein 6.5 G/DL (6.3-8.2) 06/30/17 17:05 Albumin 3.6 g/dL (3.5-5.0) 06/30/17 17:05 Globulin 2.9 gm/dL (2.2-3.9) 06/30/17 17:05 Albumin/Globulin Ratio 1.3 (1.0-2.1) 06/30/17 17:05 Thyroxine (T4) 12.2 ug/dl (5.5-11.0) H 06/30/17 17:05 Total T3 1.16 nmol/L (1.49-2.60) L 06/30/17 17:05 TSH 3rd Generation 1.59 mIU/ML (0.46-4.68) 06/30/17 17:05 Urine Color Yellow (YELLOW) 07/01/17 01:05 Urine Clarity Slighty-cloudy (Clear) 07/01/17 01:05 Urine pH 7.0 (5.0-8.0) 07/01/17 01:05 Ur Specific [place] 1.013 (1.003-1.030) 07/01/17 01:05 Urine Protein Negative mg/dL (NEGATIVE) 07/01/17 01:05 Urine Glucose (UA) Neg mg/dL (Normal) 07/01/17 01:05 Urine Ketones 20 mg/dL (NEGATIVE) 07/01/17 01:05 Urine Blood Negative (NEGATIVE) 07/01/17 01:05 Urine Nitrate Negative (NEGATIVE) 07/01/17 01:05 Urine Bilirubin Negative (NEGATIVE) 07/01/17 01:05 Urine Urobilinogen 2.0 mg/dL (0.2-1.0) H 07/01/17 01:05 Ur Leukocyte Esterase Neg [place]/uL (Negative) 07/01/17 01:05 Urine RBC (Auto) < 1 /hpf (0-3) 07/01/17 01:05 Urine Microscopic WBC < 1 /hpf (0-5) 07/01/17 01:05 Ur Squamous Epith Cells 2 /hpf (0-5) 07/01/17 01:05 Urine Bacteria Rare (<OCC) 07/01/17 01:05 - Hospital Course Hospital Course: hospital course uneventful Discharge Exam - Head Exam Head Exam: ATRAUMATIC, NORMAL INSPECTION, NORMOCEPHALIC - Respiratory Exam Additional comments: stable today Discharge Plan - Follow Up Plan Condition: STABLE Disposition: HOME/ ROUTINE Instructions: Hyperemesis Gravidarum (GEN), How To Wash Your Hands (GEN), Fall Prevention (GEN)
== END 2017-07-02 16:15 | disposition home or self-care (01) | DRG 886 ==
LOC: H.ER 12:56 → H.ERHOLD 14:42 → H.PEDS 15:13
PROVIDERS: ADMIT Specialist; ATTEND Specialist
DX: O21.1 Hyperemesis gravidarum with metabolic disturbance (principal); E03.9 Hypothyroidism, unspecified; O99.281 Endocrine, nutritional and metabolic diseases complicating pregnancy, first trimester; Z3A.11 11 weeks gestation of pregnancy

== ENCOUNTER 2017-09-13 10:15 | Emergency (ER) | payer OTHER ==
[2017-09-13 10:47] VITALS: BMI 19.1
[2017-09-13 12:00] LABS: SQUAMOUS EPITHIAL 5 /hpf (0-5); URINE BACTERIA MOD (<OCC); URINE BILIRUBIN NEGATIVE (NEGATIVE); URINE BLOOD NEGATIVE (NEGATIVE); URINE CLARITY SLIGHTY-CLOUDY (Clear); URINE COLOR YELLOW (YELLOW); URINE GLUCOSE (UA) NEG (Normal); URINE LEUKOCYTE ESTERASE TRACE Leu/uL (Negative); URINE NITRATE NEGATIVE (NEGATIVE); URINE PROTEIN NEGATIVE (NEGATIVE); URINE UROBILINOGEN 0.2-1.0 mg/dL (0.2-1.0)
--- NOTE | 2017-09-13 14:27 | US ---
PROCEDURE: Limited pelvic ultrasound HISTORY: pubic pressure COMPARISON: 06/25/2017. TECHNIQUE: Standard protocol for this study/examination. FINDINGS: Closed cervix. Cervical length 5.44 cm. Calculated cardiac rate 150 beats per minute. Posterior placenta, placenta previa. IMPRESSION: Closed cervix 5.44 cm in length.
--- NOTE | 2017-09-13 14:29 | OBHP ---
Datetime: 09/13/2017 11:08 IP Adm Impression: , intrauterine IP Admit Plan: Observation/Evaluation; Discharge home Admit Comment, IP Provider: 22 yo at 21+4 wks w/ EDC 01/20/2018 by LMP, p/w feeling pressure in vagina w/ standing over the weekend and now feels the pressure constantly. Pt denies pain w/ uri nation, VB, LOF, ctxns, and reports FM. 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 Pt receives her PN care w/ Dr. Cruz. 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 Cruz's office for urine cx result. Pt given PTL precautions. Extremities - PN: Normal Abdomen - PN: Normal Back - PN: Normal Lungs - PN: Normal Heart - PN: Normal Neurologic - PN: Normal General - PN: Normal FHR - Baseline A Provider: 140's Membranes, Provider: Intact Contraction Comments Provider: None EGA AdmitDate IP: 21.4 Vital Signs Provider: Reviewed; Within Normal Limits IP Chief Complaint: Maternal discomfort NICHD Variability Prov Fetus A: Moderate 6-25bpm NICHD Decel Fetus A IP Provider: None Dilatation, Provider: 0 Effacement, Provider: 0 Station, Provider: -3 Genitourinary Exam: Normal
--- NOTE | 2017-09-13 14:32 | OBDCSUM ---
Datetime: 09/13/2017 14:27 Discharged to, Provider: Home Follow up at, Provider: Dr. Oviedo Follow up at, Provider: Dr Oviedo Disch Instr Activity: Normal activity Disch Instr Diet: Regular Discharge Time: 09/13/2017 14:35 Follow up in weeks, Provider: 1 week Follow up in weeks, Provider: Next schedule appointment Disch Referrals: None Discharge Diagnosis Prov Other: vaginal pressure at 21+ wks
[2017-09-13 18:47] VITALS: BP 92/56; PULSE 70; O2SAT 100
== END 2017-09-13 14:30 | disposition home or self-care (01) ==
LOC: H.EROB2 10:15 → H.EROB 10:29 → H.EROB2 14:30
DX: O26.92 Pregnancy related conditions, unspecified, second trimester (principal); R10.2 Pelvic and perineal pain; Z3A.21 21 weeks gestation of pregnancy

== ENCOUNTER 2018-01-10 13:21 | Inpatient (IN) | payer OTHER ==
[2018-01-10 14:24] VITALS: BMI 22.8
[2018-01-10] MEDS ORDERED: Oxytocin 30 units/LR 500ML 30 U/500 ML BAG IV SCH (14:30)
[2018-01-10 14:55] LABS: BASO % 0.1 % (0.0-2.0); EOS % 0.5 % (0.0-4.0); HEMOGLOBIN 10.8 g/dL (12.0-16.0); LYMPH # 1.9 K/uL (1.0-4.3); LYMPH % 18.6 % (20.0-40.0); MEAN CELL VOLUME 87.2 fl (81.0-99.0); MEAN CORPUSCULAR HEMOGLOBIN 29.6 pg (27.0-31.0); MEAN CORPUSCULAR HGB CONC 33.9 g/dL (33.0-37.0); MEAN PLATELET VOLUME 11.4 fl (7.2-11.7); MONO # 0.9 K/uL (0.0-0.8); MONO % 8.6 % (0.0-10.0); NEUT # 7.4 K/uL (1.8-7.0); NEUT % 72.2 % (50.0-75.0); NRBC % 0.1 % (0.0-0.0); RBC 3.66 Mil/uL (3.80-5.20); RED CELL DISTRIBUTION WIDTH 13.2 % (11.5-14.5); WHITE BLOOD COUNT 10.3 K/uL (4.8-10.8)
--- NOTE | 2018-01-10 14:56 | OBADHP ---
Datetime: 01/10/2018 14:53 Admit Comment, IP Provider: 22 yo at 38+ 4 wks sent from [facility] u/s for induction of labor for oligohydramnios. GBS negative. FHT reassuring. Discussed plan w/ Dr. Paniagua and will place cervidil to start induction. H_P dictated, " [id number]" (ES) Pelvic Type - PN: Adequate Extremities - PN: Normal Abdomen - PN: Normal Back - PN: Normal Lungs - PN: Normal Heart - PN: Normal HEENT - PN: Normal General - PN: Normal FHR - Baseline A Provider: 140's Membranes, Provider: Intact Vital Signs Provider: Reviewed IP Chief Complaint: Scheduled induction of labor NICHD Variability Prov Fetus A: Moderate 6-25bpm NICHD Accel Fetus A IP Provider: [id number] FHR Category Provider Fetus A: Category I NICHD Decel Fetus A IP Provider: None Dilatation, Provider: 1 Effacement, Provider: 0 Genitourinary Exam: Normal DTRs - PN: Normal EGA AdmitDate IP: 38.4 IP Adm Impression: Term, intrauterine IP Admit Plan: Admit to unit; Initiate labor induction protocol Datetime: 09/13/2017 11:08 Neurologic - PN: Normal Contraction Comments Provider: None Station, Provider: -3
[2018-01-10] MEDS: Lactated Ringer's 1,000 ML IV SCH ×4 (14:58→22:00)
[2018-01-10] MEDS ORDERED: Bupivacaine HCl 0.25% PF (10 ml) Inj ONE (22:28)
[2018-01-10] MEDS ORDERED: Fentanyl/Bupivacaine HCl 250 ML EPI ONE (22:30)
--- NOTE | 2018-01-11 01:37 | HP ---
HISTORY OF PRESENT ILLNESS: This is a 22-year-old G2 P 1-0-0-1 at 38 weeks and 4 days with an EDC of 01/20/2018 by last menstrual period, consistent with 13-week ultrasound, who was sent from [facility] ultrasound for induction of labor for oligohydramnios, DEA 2.9 cm, posterior placenta, estimated weight was 7 pounds 14 ounces. The patient reports that she went to [facility] this morning for decreased movements this a.m. She reports that she is now feeling good movement. She denies contractions, leaking of fluid, vaginal bleeding. This patient receives her care with [facility] with Dr. Cruz. The patient reports that she had a placenta previa that has since resolved with this . On 12/16/2017, GBS was negative. PAST MEDICAL HISTORY: Healthy. PAST SURGICAL HISTORY: Partial thyroidectomy in 2010 for a nodule. MEDICATIONS: vitamins. ALLERGIES: NO KNOWN DRUG ALLERGIES. FAMILY HISTORY: Maternal grandmother with diabetes, maternal aunt with some kind of gynecologic cancer. SOCIAL HISTORY: She denies tobacco, alcohol, or illicit drug use. PAST OB HISTORY: In 01/2014, she underwent a vaginal delivery of a male , weighing 8 pounds 1 ounce for 40 plus week. 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 Denies any history of any STDs or any abnormal Pap smears. On 04/14/2017, Pap smear was negative. On 05/18/2017, urine culture was negative. On 06/16/2017, HIV was nonreactive. Varicella zoster, IgG was positive. Rubella IgG was positive. Her RPR was nonreactive. TSH was 1.04. Gonorrhea and chlamydia are negative. Hemoglobin electrophoresis was within normal limits. Hepatitis B surface antigen was negative. On 07/20/2017, Panorama was low risk male fetus. On 08/11/2017, MSAFP was negative. On 11/05/2017, glucose test was 135. On 11/17/2017, she had a 3-hour glucose tolerance test. The fasting was 79, one hour was 131, two hour was 114, and 3 hour was 106. On 12/16/2017, HIV was nonreactive and RPR was nonreactive. On 12/16/2017, GBS was not detected. PHYSICAL EXAMINATION: VITAL SIGNS: Afebrile. Stable. GENERAL: The patient appears comfortable, sitting up in bed. HEART: Regular rate and rhythm. CHEST: Lungs are clear to auscultation bilaterally. ABDOMEN: Soft, nontender, gravid. EXTREMITIES: Nontender, no edema. VAGINAL: Done by Dr. Paniagua in the office today, was 1 cm dilated, 0% effaced. External monitoring: Baseline is in the 140s, with moderate variability and positive accelerations. Tocodynamometer: Contractions appear to be every 2 minutes, irritability. ASSESSMENT AND PLAN: This is a 22-year-old G2 P 1-0-0-1 at 38 weeks and 4 days, sent from [facility] ultrasound for induction of labor for oligohydramnios. heart tracing is reassuring. GBS negative. Plan discussed with Dr. Paniagua who is covering Dr. Carrlilo. Will place the Cervidil to start the induction. Fiona Turcios MD MTDStefanie
[2018-01-11] MEDS ORDERED: Oxytocin 30 units/LR 500ML 30 U/500 ML BAG IV ONE (02:17)
[2018-01-11] MEDS: Lactated Ringer's 1,000 ML IV SCH (06:00)
--- NOTE | 2018-01-11 07:56 | OBDS ---
MATERNAL INFORMATION Estimated Blood Loss (ml): 250cc Maternal Complications: Other Other Maternal Complications: oligohydramnios Provider Comments: Delivered a living baby boy appears term cried spontaneoulsly 9/9, one loos e loop of cord around neck undone prior to full delivery, AF clear Placenta complete and intact Uteru s contracted well A small introital tear noted and repaired as above Tolerated procedure well no comp lications LABOR SUMMARY EDC: 01/20/2018 00:00 No. Babies in Womb: 1 Attempted: No Labor Anesthesia: Epidural LABOR INFORMATION Reason for Induction: Oligohydramnios Cervical Ripening Agents: Cervidil (Annotations: Cervidil 10 mg intravaginally inserted by Dr Turcios .) Group B Beta Strep: Negative Steroids Given: None Reason Steroids Not Administered: Not Applicable MEMBRANES Membranes Rupture Method: Spontaneous Amniotic Fluid Color: Clear Amniotic Fluid Amount: Large Amniotic Fluid Odor: Normal VAGINAL DELIVERY Episiotomy: None Laceration Extension: First Degree Laceration Type: Vaginal Laceration Repair Note: small introital tear superficial on the upper rt side sutured with two fig o f eight 4-0 chromic without any complications Sponge Count Correct: Yes Sharps Count Correct: Yes Count Comment: count correct and verified by RN CSECTION DELIVERY Primary Indication: N/A Secondary Indication: N/A CSection Incision: N/A Uterine Closure: N/A BABY A INFORMATION Forceps: N/A Vacuum Extraction: N/A Shoulder Dystocia : No PRESENTATION/POSITION BABY A Presentation: Cephalic Cephalic Presentation: Vertex Vertex Position: Left Occipital Anterior Breech Presentation: N/A PLACENTA INFORMATION BABY A Placenta Method of Delivery: Spontaneous Placenta Status: Delivered INFORMATION BABY A Gestational Age at Delivery: 38.4 IDENTIFICATION/MEDS BABY A ID Band Number: [id number] CORD INFORMATION BABY A Nuchal Cord : Around Neck x1, Loose
[2018-01-11] MEDS ORDERED: Oxycodone/Acetaminophen 5/325 mg Tab PO PRN ×2 (08:21→12:00)
[2018-01-11] MEDS ORDERED: Lactated Ringer's 1,000 ML IV SCH (12:00)
[2018-01-11] MEDS ORDERED: Benzocaine/Menthol SPRAY TOP PRN (20:09)
[2018-01-12 06:34] LABS: HEMOGLOBIN 10.5 g/dL (12.0-16.0); MEAN CELL VOLUME 86.9 fl (81.0-99.0); MEAN CORPUSCULAR HEMOGLOBIN 29.4 pg (27.0-31.0); MEAN CORPUSCULAR HGB CONC 33.8 g/dL (33.0-37.0); RBC 3.58 Mil/uL (3.80-5.20); RED CELL DISTRIBUTION WIDTH 13.1 % (11.5-14.5); WHITE BLOOD COUNT 12.3 K/uL (4.8-10.8)
[2018-01-12] MEDS ORDERED: Hydrocortisone-Pramoxine 1%-1% Foam(10 gm) TOP PRN (07:35)
--- NOTE | 2018-01-12 07:36 | OBPPN ---
Datetime: 01/12/2018 07:27 PP Pain Prov: Within normal limits PP Pain Prov comment: No SOB, chest pain or leg pains PP Nausea Prov: Denies PP Flatus Prov: Yes PP Nausea Prov comment: voiding well PP Breasts Prov: Normal PP Lungs Prov: Normal PP Abdomen/Uterus Prov: Abnormal PP Lochia Prov: Normal PP Vulva/Perineum Prov: Abnormal PP CVA Tenderness Prov: Normal PP Extremities Prov: Normal PP C/S Incision Prov: Not Applicable PP Progress Prov: Normal PP Comments Phys Exam Prov: breast feeding NT, Abd soft ND fundus at umb NT and firm, Perineum repa ired Ext no calf tenderness PP Impression Prov: Normal progression PP Plan Prov: Continue present management PP Progress Note Prov: Continue PP care OOB and ambulation IP PP Procedures: None
--- NOTE | 2018-01-13 08:16 | OBPPN ---
Datetime: 01/13/2018 08:12 PP Pain Prov: Within normal limits PP Pain Prov comment: No SOB chest or leg pains PP Nausea Prov: Denies PP Flatus Prov: Yes PP Nausea Prov comment: voiding well PP Breasts Prov: Normal PP Lungs Prov: Normal PP Abdomen/Uterus Prov: Abnormal PP Lochia Prov: Normal PP CVA Tenderness Prov: Normal PP Extremities Prov: Normal PP C/S Incision Prov: Not Applicable PP Progress Prov: Normal PP Comments Phys Exam Prov: breast feeding NT not engorged; Abd soft NT fundus firm below the umb E xt no calf tenderness PP Impression Prov: Normal progression PP Plan Prov: Discharge PP Progress Note Prov: D/C home in stable condition n follow up office 4-6 wks IP PP Procedures: None Vital Signs Provider PP: Reviewed
--- NOTE | 2018-01-13 08:18 | OBDCSUM ---
Datetime: 01/13/2018 08:15 Discharged to, Provider: Home Follow up at, Provider: Dr Cruz Disch Instr Activity: Bedrest; May be up to bathroom; May be up for meals; May Shower Disch Instr Diet: Regular Discharge Instructions, Provider: Routine instructions given Discharge Diagnosis, Provider: Term Delivered Discharge Time: 01/13/2018 08:15 Follow up in weeks, Provider: 4-6 wks Disch Referrals: None Contraception discussed, Prov: Yes Disch Activity Restrictions: No exercising; No lifting; No driving; Minimize walking; Minimize stair -climbing; No sexual activity; Nothing in vagina - [place], tampons, douche Discharge Comment, Provider: Continue PNC vit and iron Contraception after Delivery: Undecided
[2018-01-13 21:49] VITALS: BP 101/59; PULSE 67; RESP 20; TEMP 97; O2SAT 100
== END 2018-01-13 17:45 | disposition home or self-care (01) | DRG 373 ==
LOC: H.L&D 14:24 → H.OB/GYN 01-11 11:30
PROVIDERS: ADMIT Specialist; ATTEND Specialist
PROC: 4A1HXCZ Monitoring of Products of Conception, Cardiac Rate, External Approach (ICD-10-PCS; 2018-01-10)
PROC: 10E0XZZ Delivery of Products of Conception, External Approach (ICD-10-PCS; principal; 2018-01-11)
PROC: 0HQ9XZZ Repair Perineum Skin, External Approach (ICD-10-PCS; 2018-01-11)
DX: O41.03X0 Oligohydramnios, third trimester, not applicable or unspecified (principal); O36.8130 Decreased fetal movements, third trimester, not applicable or unspecified; O69.81X0 Labor and delivery complicated by cord around neck, without compression, not applicable or unspecified; O70.0 First degree perineal laceration during delivery; Z37.0 Single live birth; Z3A.38 38 weeks gestation of pregnancy